=== PATIENT | male | born 1970 | race Caucasian/White ===

== ENCOUNTER 2018-09-07 12:16 | Inpatient (IN) | payer OTHER ==
[~2018-09-07] VITALS: Ht 185.4 cm; Wt 102.4 kg
[2018-09-07 13:37] LABS: ALBUMIN 3.3 g/dL (3.4-5.0); ANION GAP 10 mmol/L (5-15); CALCIUM 7.9 mg/dL (8.5-10.1); CHLORIDE 103 mmol/L (98-107)
[2018-09-07 13:40] LABS: ALANINE AMINOTRANSFERASE 16 U/L (12-78); ALKALINE PHOSPHATASE 95 U/L (45-117); BILIRUBIN,TOTAL 0.5 mg/dL (0.2-1.0); CREATININE 1.12 mg/dL (0.7-1.3); TOTAL PROTEIN 7.3 g/dL (6.4-8.2)
[2018-09-07 14:18] LABS: MEAN CORPUSCULAR HEMOGLOBIN 32.5 pg (27.5-34.5); MEAN CORPUSCULAR HGB CONC 34.6 g/dL (33.2-36.2); MEAN CORPUSCULAR VOLUME 93.8 fL (81-97); MEAN PLATELET VOLUME 9.8 fL (7.4-10.4); PLATELET COUNT 71 x10^3/uL (130-400); RED BLOOD COUNT 3.24 x10^6/uL (4.38-5.82); RED CELL DISTRIBUTION WIDTH 19.3 % (9.4-14.8)
[2018-09-07 14:19] LABS: MD YES
[2018-09-07 14:26] LABS: BASOS% (MANUAL) 4 % (0-1); PROGRANULOCYTES% (MANUAL) 4 % (0-0)
[2018-09-07 14:27] LABS: NRBC % (MANUAL) 10 % (0-1)
[2018-09-07 14:30] LABS: BAND#(MANUAL) 19.26 x10^3/uL; BANDS%(MANUAL) 11 % (0-7); EOS#(MANUAL) 1.75 x10^3/uL (0.0-0.4); EOS% (MANUAL) 1 % (1-7); LYMPHS% (MANUAL) 2 % (22-44); METAMYELOCYTES# (MANUAL) 10.51 x10^3/uL (0-0); METAMYELOCYTES% (MANUAL) 6 % (0-1); MONOS#(MANUAL) 1.75 x10^3/uL (0.3-2.7); MONOS% (MANUAL) 1 % (2-9)
[2018-09-07 14:31] LABS: OTHER CELLS # (MANUAL) 49.03 x10^3/uL (0-0); SEG#(MANUAL) 56.03 x10^3/uL (1.8-6.8); SEGS% (MANUAL) 32 % (42-75)
[2018-09-07 14:33] LABS: ANISOCYTOSIS 2+; MICROCYTOSIS 1+; MYELOCYTES# (MANUAL) 19.26 x10^3/uL (0-0); MYELOCYTES% (MANUAL) 11 % (0-0); POLYCHROMASIA 1+
[2018-09-07 14:34] LABS: <PLATELET ESTIMATE> DECREASED; HYPOGRAN PLTS 1+
[2018-09-07 14:43] LABS: OTHER CELLS % (MANUAL) 28 % (0-0)
[2018-09-07] MEDS: SODIUM CHLORIDE 0.9% 1,000ML IVBOLUS ONE ×2 (15:38→16:15)
[2018-09-07] MEDS ORDERED: NS + 20MEQ KCL 1,000 ML IV SCH (15:43)
[2018-09-07] MEDS: NICOTINE 14MG/24 HR PATCH.TD24 TD SCH (16:00)
[2018-09-07] MEDS ORDERED: hydrALAzine 20 MG/ML, 1ML IVPush PRN (16:00)
[2018-09-07] MEDS ORDERED: ACETAMINOPHEN 325 MG TABLET PO PRN (16:00)
[2018-09-07 16:49] VITALS: BP 152/94
[2018-09-07 16:49] LABS: MEAN PLATELET VOLUME 9.1 fL (7.4-10.4); PLATELET COUNT 76 x10^3/uL (130-400); RED BLOOD COUNT 3.08 x10^6/uL (4.38-5.82)
[2018-09-07 16:52] LABS: MD YES; MEAN CORPUSCULAR HGB CONC 34.4 g/dL (33.2-36.2); MEAN CORPUSCULAR VOLUME 93.2 fL (81-97); RED CELL DISTRIBUTION WIDTH 19.5 % (9.4-14.8)
[2018-09-07] MEDS ORDERED: ENOXAPARIN 40 MG/0.4 ML SQ SCH (18:00)
[2018-09-07] MEDS ORDERED: OMNIPAQUE 350 MG/ML, 100ML BOTTLE ONE (18:15)
[2018-09-07 19:10] LABS: BASOPHILS # (AUTO) 8.99 x10^3/uL (0-0.1); BASOPHILS % (AUTO) 6 % (0-1); EOSINOPHILS # (AUTO) 7.78 x10^3/uL (0-0.4); EOSINOPHILS % (AUTO) 5 % (1-7); LYMPHOCYTES # (AUTO) 8.74 x10^3/uL (1-3.4); LYMPHOCYTES % (AUTO) 6 % (22-44); MONOCYTES # (AUTO) 12.78 x10^3/uL (0.2-0.8); MONOCYTES % (AUTO) 8 % (2-9); NEUTROPHILS # (AUTO) 113.01 x10^3/uL (1.8-6.8); NEUTROPHILS % (AUTO) 75 % (42-75)
[2018-09-07 19:48] LABS: BAND#(MANUAL) 15.13 x10^3/uL; BANDS%(MANUAL) 10 % (0-7); BASOS#(MANUAL) 4.54 x10^3/uL (0-0.1); BASOS% (MANUAL) 3 % (0-1); EOS#(MANUAL) 1.51 x10^3/uL (0.0-0.4); EOS% (MANUAL) 1 % (1-7); LYMPH#(MANUAL) 4.54 x10^3/uL (1-3.4); LYMPHS% (MANUAL) 3 % (22-44); METAMYELOCYTES# (MANUAL) 6.05 x10^3/uL (0-0); METAMYELOCYTES% (MANUAL) 4 % (0-1); MYELOCYTES# (MANUAL) 15.13 x10^3/uL (0-0); MYELOCYTES% (MANUAL) 10 % (0-0); PROGRANULOCYTES# (MANUAL) 4.54 x10^3/uL (0-0); PROGRANULOCYTES% (MANUAL) 3 % (0-0); SEG#(MANUAL) 62.03 x10^3/uL (1.8-6.8); SEGS% (MANUAL) 41 % (42-75)
[2018-09-07 19:55] LABS: NRBC % (MANUAL) 13 % (0-1); OTHER CELLS # (MANUAL) 37.83 x10^3/uL (0-0); OTHER CELLS % (MANUAL) 25 % (0-0)
[2018-09-07 19:57] LABS: ANISOCYTOSIS 2+; MICROCYTOSIS 1+; POLYCHROMASIA 1+
[2018-09-07 19:58] LABS: <PLATELET ESTIMATE> DECREASED; HYPOGRAN PLTS 1+
[2018-09-07 20:01] VITALS: BP 131/77
[2018-09-07] MEDS: HYDROXYUREA 500 MG CAPSULE PO SCH (21:00)
[2018-09-07] MEDS: NS + 20MEQ KCL 1,000 ML IV SCH (21:00)
[2018-09-08 03:01] VITALS: BP 134/85
[2018-09-08] MEDS ORDERED: LISI-167 PO (04:32)
[2018-09-08] MEDS: NS + 20MEQ KCL 1,000 ML IV SCH (04:56)
[2018-09-08 05:53] LABS: RED BLOOD COUNT 3.08 x10^6/uL (4.38-5.82)
[2018-09-08 05:54] LABS: % IRON SATURATION 34 % (20-55); ANION GAP 7 mmol/L (5-15); CHLORIDE 108 mmol/L (98-107); CREATININE 0.95 mg/dL (0.7-1.3); IRON LEVEL 79 mcg/dL (65-175); TOTAL IRON BINDING CAPACITY 230 mcg/dL (250-450)
[2018-09-08 07:04] LABS: ABSOLUTE RETICS # 0.18 x10^6/uL (0.5-1.5); RETICULOCYTE COUNT % 5.84 % (0.5-1.5)
[2018-09-08 07:55] LABS: MEAN CORPUSCULAR HEMOGLOBIN 30.3 pg (27.5-34.5); MEAN CORPUSCULAR HGB CONC 32.6 g/dL (33.2-36.2); MEAN CORPUSCULAR VOLUME 92.9 fL (81-97); RED BLOOD COUNT 3.15 x10^6/uL (4.38-5.82); RED CELL DISTRIBUTION WIDTH 19.9 % (9.4-14.8)
[2018-09-08 07:56] LABS: MD YES; MEAN PLATELET VOLUME 9.6 fL (7.4-10.4); PLATELET COUNT 66 x10^3/uL (130-400)
[2018-09-08 08:10] VITALS: BP 144/86
[2018-09-08 08:59] LABS: BAND#(MANUAL) 13.21 x10^3/uL; BANDS%(MANUAL) 10 % (0-7); BASOS#(MANUAL) 1.32 x10^3/uL (0-0.1); BASOS% (MANUAL) 1 % (0-1); EOS#(MANUAL) 1.32 x10^3/uL (0.0-0.4); EOS% (MANUAL) 1 % (1-7); LYMPH#(MANUAL) 13.21 x10^3/uL (1-3.4); LYMPHS% (MANUAL) 10 % (22-44); METAMYELOCYTES# (MANUAL) 2.64 x10^3/uL (0-0); METAMYELOCYTES% (MANUAL) 2 % (0-1); MONOS#(MANUAL) 10.57 x10^3/uL (0.3-2.7); MONOS% (MANUAL) 8 % (2-9); MYELOCYTES# (MANUAL) 10.57 x10^3/uL (0-0); MYELOCYTES% (MANUAL) 8 % (0-0); PROGRANULOCYTES# (MANUAL) 1.32 x10^3/uL (0-0); PROGRANULOCYTES% (MANUAL) 1 % (0-0); SEG#(MANUAL) 44.91 x10^3/uL (1.8-6.8); SEGS% (MANUAL) 34 % (42-75)
[2018-09-08] MEDS ORDERED: TAMSULOSIN 0.4 MG CAP.ER.24H PO SCH (09:00)
[2018-09-08 09:02] LABS: ANISOCYTOSIS 2+; BLASTS # (MANUAL) 33.03 x10^3/uL (0-0); BLASTS % (MANUAL) 25 % (0-0); NRBC % (MANUAL) 13 % (0-1)
[2018-09-08 09:03] LABS: <PLATELET ESTIMATE> DECREASED; HYPOGRAN PLTS 1+; MICROCYTOSIS 1+; POLYCHROMASIA 1+
[2018-09-08 12:29] VITALS: BP 128/79
[2018-09-08] MEDS ORDERED: SODIUM CHLORIDE 0.9% 1,000 ML IV SCH (12:30)
[2018-09-08] MEDS: HYDROXYUREA 500 MG CAPSULE PO SCH (13:46)
[2018-09-08] MEDS ORDERED: NS + 20MEQ KCL 1,000 ML IV SCH (15:43)
[2018-09-08] MEDS: NICOTINE 14MG/24 HR PATCH.TD24 TD SCH (15:51)
[2018-09-08] MEDS ORDERED: ENOXAPARIN 40 MG/0.4 ML SQ SCH (18:00)
[2018-09-08 19:50] VITALS: BP 144/84
== END 2018-09-08 21:15 | DRG 841 ==
LOC: ED 15:48 → EDIP 15:51 → 3NW 16:30
PROVIDERS: ADMIT Hospitalist; ATTEND Hospitalist
PROC: 02HV33Z Insertion of Infusion Device into Superior Vena Cava, Percutaneous Approach (ICD-10-PCS; principal; 2018-09-08)
PROC: B5181ZA Fluoroscopy of Superior Vena Cava using Low Osmolar Contrast, Guidance (ICD-10-PCS; 2018-09-08)
DX: C92.11 Chronic myeloid leukemia, BCR/ABL-positive, in remission (principal); I50.20 Unspecified systolic (congestive) heart failure; D64.9 Anemia, unspecified; D69.59 Other secondary thrombocytopenia; F17.210 Nicotine dependence, cigarettes, uncomplicated; I11.0 Hypertensive heart disease with heart failure; N40.0 Benign prostatic hyperplasia without lower urinary tract symptoms; R16.1 Splenomegaly, not elsewhere classified; Z86.73 Personal history of transient ischemic attack (TIA), and cerebral infarction without residual deficits; I25.2 Old myocardial infarction; Z71.6 Tobacco abuse counseling
CPT/HCPCS: 36415; 36556; 71275; 76700; 76937; 77001; 80048; 80053; 82607; 82728; 83540; 83550; 83615; 85025; 85045; 85379; 93005; 93306; 99285; G0378; J3480; Q9967; C1751; J1642; J7030

== ENCOUNTER 2018-09-13 10:49 | Inpatient (IN) | payer OTHER ==
[~2018-09-13] VITALS: Ht 185.4 cm; Wt 93.7 kg
[~2018-09-13 10:49] MED LIST: LISI-167 PO
[2018-09-13 14:46] VITALS: BP 114/75
[2018-09-13] MEDS ORDERED: ALLO300T PO (16:03)
[2018-09-13] MEDS ORDERED: AMLO10TA4 PO (16:03)
[2018-09-13] MEDS ORDERED: HYDR500C3 PO (16:03)
[2018-09-13] MEDS ORDERED: TAMS-11 PO (16:03)
[2018-09-13] MEDS ORDERED: OLME40TA12 PO (16:03)
[2018-09-13 16:24] LABS: ALANINE AMINOTRANSFERASE 16 U/L (12-78); ALBUMIN 2.7 g/dL (3.4-5.0); ANION GAP 8 mmol/L (5-15); CALCIUM 7.5 mg/dL (8.5-10.1); CHLORIDE 105 mmol/L (98-107); CREATININE 1.18 mg/dL (0.7-1.3)
[2018-09-13 16:26] LABS: ALKALINE PHOSPHATASE 106 U/L (45-117); BILIRUBIN,TOTAL 0.4 mg/dL (0.2-1.0); TOTAL PROTEIN 6.9 g/dL (6.4-8.2)
[2018-09-13] MEDS ORDERED: morphine SULFATE 10 MG/ML, 1ML IVPush PRN (16:30)
[2018-09-13] MEDS ORDERED: ACETAMINOPHEN 325 MG TABLET PO PRN (16:30)
[2018-09-13] MEDS ORDERED: ONDANSETRON 2MG/ML, 2ML IVPush PRN (16:30)
[2018-09-13] MEDS ORDERED: TEMAZEPAM 15 MG CAPSULE PO PRN (16:30)
[2018-09-13] MEDS ORDERED: hydrALAzine 20 MG/ML, 1ML IVPush PRN (16:30)
[2018-09-13 16:35] LABS: MEAN CORPUSCULAR HEMOGLOBIN 30.8 pg (27.5-34.5); MEAN CORPUSCULAR HGB CONC 33.4 g/dL (33.2-36.2); MEAN CORPUSCULAR VOLUME 92.2 fL (81-97); MEAN PLATELET VOLUME 9.8 fL (7.4-10.4); PLATELET COUNT 50 x10^3/uL (130-400); RED BLOOD COUNT 3.04 x10^6/uL (4.38-5.82); RED CELL DISTRIBUTION WIDTH 19.6 % (9.4-14.8)
[2018-09-13 16:40] LABS: MD YES
[2018-09-13 16:51] LABS: HCT (SEDRATE) 28.5 % (39.2-51.8)
[2018-09-13 16:58] LABS: BANDS%(MANUAL) 9 % (0-7); BASOS#(MANUAL) 2.13 x10^3/uL (0-0.1); BASOS% (MANUAL) 6 % (0-1); LYMPH#(MANUAL) 1.42 x10^3/uL (1-3.4); LYMPHS% (MANUAL) 4 % (22-44); METAMYELOCYTES# (MANUAL) 0.36 x10^3/uL (0-0); METAMYELOCYTES% (MANUAL) 1 % (0-1); MONOS#(MANUAL) 2.49 x10^3/uL (0.3-2.7); MONOS% (MANUAL) 7 % (2-9); PROGRANULOCYTES# (MANUAL) 1.42 x10^3/uL (0-0); PROGRANULOCYTES% (MANUAL) 4 % (0-0); SEG#(MANUAL) 23.43 x10^3/uL (1.8-6.8); SEGS% (MANUAL) 66 % (42-75)
[2018-09-13 17:02] LABS: BLASTS # (MANUAL) 1.07 x10^3/uL (0-0); BLASTS % (MANUAL) 3 % (0-0); NRBC % (MANUAL) 4 % (0-1)
[2018-09-13 17:04] LABS: ANISOCYTOSIS 2+; MICROCYTOSIS 1+; POLYCHROMASIA 1+
[2018-09-13 17:05] LABS: <PLATELET ESTIMATE> DECREASED; HYPOGRAN PLTS 1+
[2018-09-13 17:20] LABS: C-REACTIVE PROTEIN, QUANT 6.9 mg/dL (0.02-0.49); THYROID STIMULATING HORMONE 4.91 mIU/L (0.358-3.740)
[2018-09-13 18:01] LABS: MICROSCOPIC INDICATED
[2018-09-13 20:25] VITALS: BP 135/79
[2018-09-13] MEDS: HYDROXYUREA 500 MG CAPSULE PO SCH (20:59)
[2018-09-13] MEDS: ALLOPURINOL 300 MG TABLET PO SCH (21:04)
[2018-09-13] MEDS: CEFEPIME 2 GM in DEXTROSE 5% 100 ML IV SCH (21:04)
[2018-09-14 02:02] VITALS: BP 118/75
[2018-09-14 04:43] LABS: MEAN CORPUSCULAR HEMOGLOBIN 30.4 pg (27.5-34.5); MEAN CORPUSCULAR HGB CONC 32.9 g/dL (33.2-36.2); MEAN CORPUSCULAR VOLUME 92.3 fL (81-97); MEAN PLATELET VOLUME 10.3 fL (7.4-10.4); PLATELET COUNT 51 x10^3/uL (130-400); RED BLOOD COUNT 2.95 x10^6/uL (4.38-5.82); RED CELL DISTRIBUTION WIDTH 19.4 % (9.4-14.8)
[2018-09-14 04:55] LABS: ALANINE AMINOTRANSFERASE 18 U/L (12-78); ALBUMIN 2.6 g/dL (3.4-5.0); ANION GAP 8 mmol/L (5-15); CALCIUM 7.7 mg/dL (8.5-10.1); CHLORIDE 107 mmol/L (98-107); CREATININE 1.07 mg/dL (0.7-1.3)
[2018-09-14 04:58] LABS: ALKALINE PHOSPHATASE 104 U/L (45-117); BILIRUBIN,TOTAL 0.3 mg/dL (0.2-1.0); CHOL/HDL RATIO 4.6; CHOLESTEROL, TOTAL 79 mg/dL (140-239); HDL CHOL % 22 % (26-37); HDL CHOLESTEROL (DIRECT) 17 mg/dL (40-60); LDL CHOLESTEROL,CALCULATED 36 mg/dL (54-169); LDL/HDL RATIO 2.1 (0.5-3.0); TOTAL PROTEIN 6.3 g/dL (6.4-8.2); TRIGLYCERIDES 128 mg/dL (50-200); VLDL CHOLESTEROL 26 mg/dL (0-25)
[2018-09-14 05:08] LABS: MD YES
[2018-09-14 05:10] LABS: BAND#(MANUAL) 2.18 x10^3/uL; BANDS%(MANUAL) 6 % (0-7); LYMPH#(MANUAL) 3.64 x10^3/uL (1-3.4); LYMPHS% (MANUAL) 10 % (22-44); MYELOCYTES# (MANUAL) 0.73 x10^3/uL (0-0); MYELOCYTES% (MANUAL) 2 % (0-0); NRBC % (MANUAL) 3 % (0-1); PROGRANULOCYTES# (MANUAL) 0.36 x10^3/uL (0-0); PROGRANULOCYTES% (MANUAL) 1 % (0-0); SEG#(MANUAL) 23.66 x10^3/uL (1.8-6.8); SEGS% (MANUAL) 65 % (42-75)
[2018-09-14 05:11] LABS: METAMYELOCYTES# (MANUAL) 0.73 x10^3/uL (0-0); METAMYELOCYTES% (MANUAL) 2 % (0-1)
[2018-09-14 05:12] LABS: BLASTS # (MANUAL) 1.09 x10^3/uL (0-0); BLASTS % (MANUAL) 3 % (0-0)
[2018-09-14 05:13] LABS: <PLATELET ESTIMATE> DECREASED; ANISOCYTOSIS 2+; MICROCYTOSIS 1+; MONOS% (MANUAL) 11 % (2-9); OVALOCYTES 1+; POLYCHROMASIA 1+
[2018-09-14 05:14] LABS: HYPOGRAN PLTS 1+
[2018-09-14] MEDS: CEFEPIME 2 GM in DEXTROSE 5% 100 ML IV SCH (05:34)
[2018-09-14 07:32] VITALS: BP 112/72
[2018-09-14] MEDS: HYDROXYUREA 500 MG CAPSULE PO SCH ×2 (09:00→20:42)
[2018-09-14] MEDS ORDERED: ENOXAPARIN 40 MG/0.4 ML SQ SCH (09:00)
[2018-09-14] MEDS: ALLOPURINOL 300 MG TABLET PO SCH ×2 (10:01→20:42)
[2018-09-14] MEDS: LOSARTAN 50MG TABLET PO SCH (10:03)
[2018-09-14] MEDS: SPIRONOLACTONE 25 MG TABLET PO SCH (10:04)
[2018-09-14] MEDS: TAMSULOSIN 0.4 MG CAP.ER.24H PO SCH (10:04)
[2018-09-14] MEDS: CEFTRIAXONE PMX 2GM/50ML 50 ML IV SCH (13:26)
[2018-09-14 14:30] VITALS: BP 115/73
[2018-09-14 20:58] VITALS: BP 115/70
[2018-09-15 03:02] VITALS: BP 126/69
[2018-09-15 04:54] LABS: MEAN CORPUSCULAR HEMOGLOBIN 30.8 pg (27.5-34.5); MEAN CORPUSCULAR HGB CONC 33.5 g/dL (33.2-36.2); MEAN CORPUSCULAR VOLUME 91.9 fL (81-97); MEAN PLATELET VOLUME 9.9 fL (7.4-10.4); PLATELET COUNT 64 x10^3/uL (130-400); RED BLOOD COUNT 2.77 x10^6/uL (4.38-5.82); RED CELL DISTRIBUTION WIDTH 19.2 % (9.4-14.8)
[2018-09-15 06:44] LABS: MD YES
[2018-09-15 07:06] LABS: BAND#(MANUAL) 2.29 x10^3/uL; BANDS%(MANUAL) 7 % (0-7); EOS#(MANUAL) 0.33 x10^3/uL (0.0-0.4); EOS% (MANUAL) 1 % (1-7); METAMYELOCYTES# (MANUAL) 0.98 x10^3/uL (0-0); METAMYELOCYTES% (MANUAL) 3 % (0-1); PROGRANULOCYTES# (MANUAL) 0.65 x10^3/uL (0-0); PROGRANULOCYTES% (MANUAL) 2 % (0-0)
[2018-09-15 07:07] LABS: BLASTS # (MANUAL) 0.98 x10^3/uL (0-0); NRBC % (MANUAL) 3 % (0-1)
[2018-09-15 07:08] LABS: ANISOCYTOSIS 2+; LYMPH#(MANUAL) 4.25 x10^3/uL (1-3.4); LYMPHS% (MANUAL) 13 % (22-44); MICROCYTOSIS 1+; MONOS#(MANUAL) 1.96 x10^3/uL (0.3-2.7); MONOS% (MANUAL) 6 % (2-9); MYELOCYTES# (MANUAL) 0.65 x10^3/uL (0-0); MYELOCYTES% (MANUAL) 2 % (0-0)
[2018-09-15 07:27] LABS: <PLATELET ESTIMATE> DECREASED; GIANT PLATELETS 1+; HYPOGRAN PLTS 1+
[2018-09-15 07:28] LABS: OVALOCYTES 1+; POLYCHROMASIA 1+
[2018-09-15 07:30] LABS: BASOS#(MANUAL) 1.31 x10^3/uL (0-0.1); BASOS% (MANUAL) 4 % (0-1); PMNS WITH VACUOLES 1+; SEG#(MANUAL) 19.29 x10^3/uL (1.8-6.8); SEGS% (MANUAL) 59 % (42-75)
[2018-09-15 07:31] LABS: BLASTS % (MANUAL) 3 % (0-0)
[2018-09-15 08:29] VITALS: BP 113/70
[2018-09-15] MEDS: TAMSULOSIN 0.4 MG CAP.ER.24H PO SCH (08:33)
[2018-09-15] MEDS: ALLOPURINOL 300 MG TABLET PO SCH ×2 (08:33→20:41)
[2018-09-15] MEDS: SPIRONOLACTONE 25 MG TABLET PO SCH (08:34)
[2018-09-15] MEDS: LOSARTAN 50MG TABLET PO SCH (08:34)
[2018-09-15] MEDS: HYDROXYUREA 500 MG CAPSULE PO SCH ×2 (09:28→20:49)
[2018-09-15] MEDS: CEFTRIAXONE PMX 2GM/50ML 50 ML IV SCH (13:52)
[2018-09-15 14:30] VITALS: BP 114/75
[2018-09-15 21:16] VITALS: BP 120/76
[2018-09-16 03:00] VITALS: BP 105/61
[2018-09-16 05:03] LABS: ALBUMIN 2.7 g/dL (3.4-5.0); ANION GAP 7 mmol/L (5-15); CALCIUM 7.2 mg/dL (8.5-10.1); CHLORIDE 107 mmol/L (98-107)
[2018-09-16 05:07] LABS: ALANINE AMINOTRANSFERASE 22 U/L (12-78); ALKALINE PHOSPHATASE 102 U/L (45-117); BILIRUBIN,TOTAL 0.3 mg/dL (0.2-1.0); CREATININE 0.93 mg/dL (0.7-1.3); TOTAL PROTEIN 6.5 g/dL (6.4-8.2)
[2018-09-16 05:22] LABS: MEAN CORPUSCULAR HEMOGLOBIN 30.3 pg (27.5-34.5); MEAN CORPUSCULAR HGB CONC 33.1 g/dL (33.2-36.2); MEAN CORPUSCULAR VOLUME 91.3 fL (81-97); MEAN PLATELET VOLUME 9.8 fL (7.4-10.4); PLATELET COUNT 81 x10^3/uL (130-400); RED BLOOD COUNT 2.76 x10^6/uL (4.38-5.82); RED CELL DISTRIBUTION WIDTH 19.4 % (9.4-14.8)
[2018-09-16 06:08] LABS: MD YES
[2018-09-16 06:13] LABS: BAND#(MANUAL) 2.64 x10^3/uL; BANDS%(MANUAL) 10 % (0-7); BASOS#(MANUAL) 1.06 x10^3/uL (0-0.1); BASOS% (MANUAL) 4 % (0-1); BLASTS # (MANUAL) 0.79 x10^3/uL (0-0); EOS#(MANUAL) 0.26 x10^3/uL (0.0-0.4); EOS% (MANUAL) 1 % (1-7); LYMPH#(MANUAL) 2.64 x10^3/uL (1-3.4); LYMPHS% (MANUAL) 10 % (22-44); METAMYELOCYTES# (MANUAL) 0.53 x10^3/uL (0-0); METAMYELOCYTES% (MANUAL) 2 % (0-1); MONOS#(MANUAL) 1.32 x10^3/uL (0.3-2.7); MONOS% (MANUAL) 5 % (2-9); MYELOCYTES# (MANUAL) 0.26 x10^3/uL (0-0); MYELOCYTES% (MANUAL) 1 % (0-0); NRBC % (MANUAL) 1 % (0-1); SEGS% (MANUAL) 64 % (42-75)
[2018-09-16 06:14] LABS: ANISOCYTOSIS 2+; BLASTS % (MANUAL) 3 % (0-0); MICROCYTOSIS 1+
[2018-09-16 06:15] LABS: POLYCHROMASIA 1+
[2018-09-16 06:16] LABS: <PLATELET ESTIMATE> DECREASED; HYPOGRAN PLTS 1+; OVALOCYTES 1+
[2018-09-16 06:17] LABS: GIANT PLATELETS 1+
[2018-09-16 08:00] VITALS: BP 123/77
[2018-09-16] MEDS: HYDROXYUREA 500 MG CAPSULE PO SCH ×2 (08:50→20:39)
[2018-09-16] MEDS: LOSARTAN 50MG TABLET PO SCH (08:51)
[2018-09-16] MEDS: SPIRONOLACTONE 25 MG TABLET PO SCH (08:51)
[2018-09-16] MEDS: ALLOPURINOL 300 MG TABLET PO SCH ×2 (08:51→20:38)
[2018-09-16] MEDS: TAMSULOSIN 0.4 MG CAP.ER.24H PO SCH (08:51)
[2018-09-16] MEDS: METOPROLOL SUCCINATE 25 MG TAB.ER.24H PO SCH (11:29)
[2018-09-16] MEDS: CEFTRIAXONE PMX 2GM/50ML 50 ML IV SCH (13:49)
[2018-09-16 14:00] VITALS: BP 118/74
[2018-09-16 19:08] VITALS: BP 111/67
[2018-09-17 02:59] VITALS: BP 114/70
[2018-09-17 04:41] LABS: MEAN CORPUSCULAR HEMOGLOBIN 30.7 pg (27.5-34.5); MEAN CORPUSCULAR HGB CONC 33.1 g/dL (33.2-36.2); MEAN CORPUSCULAR VOLUME 92.6 fL (81-97); RED BLOOD COUNT 2.75 x10^6/uL (4.38-5.82); RED CELL DISTRIBUTION WIDTH 19.5 % (9.4-14.8)
[2018-09-17 04:42] LABS: HCT (SEDRATE) 25.5 % (39.2-51.8)
[2018-09-17 04:50] LABS: ALBUMIN 2.9 g/dL (3.4-5.0); ANION GAP 6 mmol/L (5-15); CALCIUM 8.2 mg/dL (8.5-10.1); CHLORIDE 107 mmol/L (98-107)
[2018-09-17 04:54] LABS: ALANINE AMINOTRANSFERASE 31 U/L (12-78); ALKALINE PHOSPHATASE 107 U/L (45-117); BILIRUBIN,TOTAL 0.3 mg/dL (0.2-1.0); C-REACTIVE PROTEIN, QUANT 0.75 mg/dL (0.02-0.49); CREATININE 0.92 mg/dL (0.7-1.3); TOTAL PROTEIN 6.9 g/dL (6.4-8.2)
[2018-09-17 05:46] LABS: MD YES; MEAN PLATELET VOLUME 9.4 fL (7.4-10.4); PLATELET COUNT 106 x10^3/uL (130-400)
[2018-09-17 07:51] VITALS: BP 121/75
[2018-09-17 08:33] LABS: BAND#(MANUAL) 0.91 x10^3/uL; BANDS%(MANUAL) 4 % (0-7); BASOS#(MANUAL) 0.91 x10^3/uL (0-0.1); BASOS% (MANUAL) 4 % (0-1); EOS#(MANUAL) 0.91 x10^3/uL (0.0-0.4); EOS% (MANUAL) 4 % (1-7); LYMPH#(MANUAL) 3.65 x10^3/uL (1-3.4); LYMPHS% (MANUAL) 16 % (22-44); METAMYELOCYTES# (MANUAL) 0.46 x10^3/uL (0-0); METAMYELOCYTES% (MANUAL) 2 % (0-1); MONOS#(MANUAL) 0.91 x10^3/uL (0.3-2.7); MONOS% (MANUAL) 4 % (2-9); SEG#(MANUAL) 15.05 x10^3/uL (1.8-6.8); SEGS% (MANUAL) 66 % (42-75)
[2018-09-17 08:34] LABS: ANISOCYTOSIS 2+; HYPOCHROMIA 1+; MICROCYTOSIS 1+
[2018-09-17 08:35] LABS: <PLATELET ESTIMATE> DECREASED; <PLT MORPHOLOGY> NORMAL PLT MORPH
[2018-09-17] MEDS: SPIRONOLACTONE 25 MG TABLET PO SCH (09:57)
[2018-09-17] MEDS: ALLOPURINOL 300 MG TABLET PO SCH ×2 (09:57→21:33)
[2018-09-17] MEDS: METOPROLOL SUCCINATE 25 MG TAB.ER.24H PO SCH (09:57)
[2018-09-17] MEDS: TAMSULOSIN 0.4 MG CAP.ER.24H PO SCH (09:57)
[2018-09-17] MEDS: LOSARTAN 50MG TABLET PO SCH (09:58)
[2018-09-17] MEDS: HYDROXYUREA 500 MG CAPSULE PO SCH ×2 (09:59→21:42)
[2018-09-17 12:22] VITALS: BP 99/64
[2018-09-17] MEDS: CEFTRIAXONE PMX 2GM/50ML 50 ML IV SCH (13:05)
[2018-09-17 20:39] VITALS: BP 109/70
[2018-09-18 01:13] VITALS: BP 103/66
[2018-09-18 05:15] LABS: MEAN CORPUSCULAR HEMOGLOBIN 30.2 pg (27.5-34.5); MEAN CORPUSCULAR VOLUME 91.8 fL (81-97); RED BLOOD COUNT 2.72 x10^6/uL (4.38-5.82); RED CELL DISTRIBUTION WIDTH 19.8 % (9.4-14.8)
[2018-09-18 05:26] LABS: ALBUMIN 2.8 g/dL (3.4-5.0); ANION GAP 5 mmol/L (5-15); CALCIUM 7.9 mg/dL (8.5-10.1); CHLORIDE 107 mmol/L (98-107)
[2018-09-18 05:31] LABS: ALANINE AMINOTRANSFERASE 33 U/L (12-78); ALKALINE PHOSPHATASE 100 U/L (45-117); BILIRUBIN,TOTAL 0.3 mg/dL (0.2-1.0); CREATININE 1.06 mg/dL (0.7-1.3); TOTAL PROTEIN 6.7 g/dL (6.4-8.2)
[2018-09-18 05:43] LABS: MD YES; MEAN PLATELET VOLUME 9.2 fL (7.4-10.4); PLATELET COUNT 124 x10^3/uL (130-400)
[2018-09-18 05:49] LABS: BAND#(MANUAL) 1.34 x10^3/uL; BANDS%(MANUAL) 7 % (0-7); BASOS#(MANUAL) 0.76 x10^3/uL (0-0.1); BASOS% (MANUAL) 4 % (0-1); EOS#(MANUAL) 0.19 x10^3/uL (0.0-0.4); EOS% (MANUAL) 1 % (1-7); LYMPH#(MANUAL) 2.87 x10^3/uL (1-3.4); LYMPHS% (MANUAL) 15 % (22-44); MONOS#(MANUAL) 0.19 x10^3/uL (0.3-2.7); MONOS% (MANUAL) 1 % (2-9); MYELOCYTES# (MANUAL) 0.19 x10^3/uL (0-0); MYELOCYTES% (MANUAL) 1 % (0-0); REACTIVE LYMPHS # (MANUAL) 0.19 x10^3/uL (0-0); REACTIVE LYMPHS % (MANUAL) 1 % (0-0); SEG#(MANUAL) 13.37 x10^3/uL (1.8-6.8); SEGS% (MANUAL) 70 % (42-75)
[2018-09-18 05:51] LABS: ANISOCYTOSIS 1+; HYPOCHROMIA 1+; MICROCYTOSIS 1+; POLYCHROMASIA 1+
[2018-09-18 05:52] LABS: <PLATELET ESTIMATE> DECREASED; GIANT PLATELETS 1+; HYPOGRAN PLTS 1+; OVALOCYTES 1+
[2018-09-18 06:48] VITALS: BP 126/69
[2018-09-18] MEDS: HYDROXYUREA 500 MG CAPSULE PO SCH ×2 (09:57→20:21)
[2018-09-18] MEDS: ALLOPURINOL 300 MG TABLET PO SCH ×2 (09:59→20:19)
[2018-09-18] MEDS: SPIRONOLACTONE 25 MG TABLET PO SCH (09:59)
[2018-09-18] MEDS: TAMSULOSIN 0.4 MG CAP.ER.24H PO SCH (09:59)
[2018-09-18] MEDS: LOSARTAN 50MG TABLET PO SCH (09:59)
[2018-09-18] MEDS: METOPROLOL SUCCINATE 25 MG TAB.ER.24H PO SCH (09:59)
[2018-09-18 13:00] VITALS: BP 102/63
[2018-09-18] MEDS: CEFTRIAXONE PMX 2GM/50ML 50 ML IV SCH (13:25)
[2018-09-18 19:01] VITALS: BP 102/60
[2018-09-18] MEDS ORDERED: ALLO300T PO (19:16)
[2018-09-18] MEDS ORDERED: HYDR500C3 PO (19:16)
[2018-09-18] MEDS ORDERED: CARV3.12 PO (19:25)
== END 2018-09-18 20:45 | disposition home or self-care (01) | DRG 314 ==
LOC: 3NW 14:34
PROVIDERS: ADMIT Hospitalist; ATTEND Hospitalist
DX: T82.7XXA Infection and inflammatory reaction due to other cardiac and vascular devices, implants and grafts, initial encounter (principal); A41.51 Sepsis due to Escherichia coli [E. coli]; E43 Unspecified severe protein-calorie malnutrition; C92.10 Chronic myeloid leukemia, BCR/ABL-positive, not having achieved remission; N17.9 Acute kidney failure, unspecified; I50.22 Chronic systolic (congestive) heart failure; R16.1 Splenomegaly, not elsewhere classified; D69.6 Thrombocytopenia, unspecified; D64.9 Anemia, unspecified; F17.200 Nicotine dependence, unspecified, uncomplicated; I11.0 Hypertensive heart disease with heart failure; N40.0 Benign prostatic hyperplasia without lower urinary tract symptoms; Z80.0 Family history of malignant neoplasm of digestive organs; Z86.73 Personal history of transient ischemic attack (TIA), and cerebral infarction without residual deficits; Z91.19 Patient's noncompliance with other medical treatment and regimen; Z71.6 Tobacco abuse counseling; I71.2 Thoracic aortic aneurysm, without rupture; Z79.899 Other long term (current) drug therapy
CPT/HCPCS: 36415; 71045; 80053; 80061; 81001; 83605; 83735; 84100; 84145; 84439; 84443; 84550; 85025; 85651; 86140; 87040; 93005; G0378; J0696; J1650

== ENCOUNTER 2018-11-15 07:42 | Outpatient (CLI) | payer OTHER ==
[~2018-11-15 07:42] MED LIST changes: +ALLO300T PO; +AMLO10TA4 PO; +CARV3.12 PO; +HYDR500C3 PO; +OLME40TA12 PO; +REGADENOSON 0.4 MG/5 ML SYRINGE ONE; +TAMS-11 PO
== END 2018-11-15 23:59 | disposition home or self-care (01) ==
LOC: CFH 07:42
PROVIDERS: ATTEND Internal Medicine Cardiovascular Disease
DX: I42.9 Cardiomyopathy, unspecified (principal); I50.22 Chronic systolic (congestive) heart failure; I10 Essential (primary) hypertension
CPT/HCPCS: 78452; 93017; A9502; J2785

== ENCOUNTER → 2019-01-28 | Outpatient (CLI) | payer OTHER ==
[~2019-01-28] MED LIST changes: +CARV6.2512 PO; -REGADENOSON 0.4 MG/5 ML SYRINGE ONE
== END | disposition home or self-care (01) ==
LOC: CVU 13:18
PROVIDERS: ATTEND Internal Medicine Cardiovascular Disease
DX: I08.8 Other rheumatic multiple valve diseases (principal); I42.9 Cardiomyopathy, unspecified
CPT/HCPCS: 93306